=== PATIENT | female | born 1985 | race Caucasian/White ===

== ENCOUNTER 2017-01-07 01:03 | Inpatient (IN) | payer OTHER ==
[2017-01-07] VITALS (23 sets, daily range): BP systolic 115–160; BP diastolic 58–93; PULSE 44–77; TEMP 97.6–98.3
[~2017-01-07] VITALS: Ht 157.5 cm; Wt 65.5 kg
[2017-01-07] MEDS ORDERED: PRENATA1 CTB PO (01:44)
[2017-01-07] MEDS ORDERED: TYLENOL PM EXTR1 TA1 PO (01:46)
[2017-01-07 02:33] LABS: BASO # 0.1 (0.0-0.2); BASO % 0.4 % (0.0-2.0); EOS # 0.1 (0.0-0.7); EOS % 0.6 % (0-4.0); GRAN # 9.2 (1.4-6.5); GRAN % 67.4 % (42.2-75.2); HEMATOCRIT 31.8 % (37.0-47.0); HEMOGLOBIN 11.6 g/dl (12.5-16.0); LYMPH # 3.3 (1.2-3.4); LYMPH % 23.9 % (20.0-51.0); MEAN CELL VOLUME 88 fl (80.0-100.0); MEAN CORPUSCULAR HEMOGLOBIN 32 pg (27.0-31.0); MEAN CORPUSCULAR HGB CONC 37 g/dl (33.0-37.0); MEAN PLATELET VOLUME 11.1 fl (7.4-10.4); MONO # 0.9 (0.1-0.6); MONO % 6.7 % (1.7-9.3); PLATELET COUNT 148 K/mm3 (130-400); RED BLOOD COUNT 3.61 M/mm3 (4.10-5.30); REDCELL DISTRIBUTION WIDTH-CV 12.5 % (11.5-14.5); WHITE BLOOD COUNT 13.6 K/mm3 (4.8-10.8)
[2017-01-07 02:43] LABS: ADJUSTED CALCIUM 9.9 mg/dL (8.4-10.2); ALBUMIN 3.4 gm/dL (3.5-5.0); BILIRUBIN,TOTAL 0.4 mg/dL (0.0-1.0); CALCIUM 9.4 mg/dL (8.4-10.2); CREATININE, serum 0.93 mg/dL (0.52-1.25); TOTAL PROTEIN 6.2 gm/dL (6.4-8.2)
[2017-01-08 07:50] LABS: BASO % 0.2 % (0.0-2.0); GRAN # 19.6 (1.4-6.5); LYMPH # 3.7 (1.2-3.4); LYMPH % 14.7 % (20.0-51.0); MEAN CELL VOLUME 91 fl (80.0-100.0); MEAN CORPUSCULAR HGB CONC 35 g/dl (33.0-37.0); MEAN PLATELET VOLUME 11.1 fl (7.4-10.4); MONO # 1.5 (0.1-0.6); MONO % 5.9 % (1.7-9.3); PLATELET COUNT 138 K/mm3 (130-400); RED BLOOD COUNT 2.71 M/mm3 (4.10-5.30); REDCELL DISTRIBUTION WIDTH-CV 13.1 % (11.5-14.5)
[2017-01-08 07:58] LABS: HEMATOCRIT 24.6 % (37.0-47.0); HEMOGLOBIN 8.6 g/dl (12.5-16.0); MEAN CORPUSCULAR HEMOGLOBIN 32 pg (27.0-31.0); WHITE BLOOD COUNT 25.2 K/mm3 (4.8-10.8)
[2017-01-08] MEDS ORDERED: IBU800 M1 PO (08:56)
[2017-01-08] MEDS ORDERED: PERCOCET 325 MG1 TA2 PO (08:56)
[2017-01-08] MEDS ORDERED: FERROUS SU325 MG/TAB PO (08:57)
[2017-01-08 09:00] VITALS: BP 129/78; PULSE 55; TEMP 98.9
== END 2017-01-08 10:40 | disposition home or self-care (01) | DRG 775 ==
LOC: LDRO 01:03 → LDR 03:15 → OB 10:30
PROVIDERS: Obstetrics & Gynecology; Student in an Organized Health Care Education/Training Program
PROC: 10E0XZZ Delivery of Products of Conception, External Approach (ICD-10-PCS; principal; 2017-01-07)
PROC: 0KQM0ZZ Repair Perineum Muscle, Open Approach (ICD-10-PCS; 2017-01-07)
DX: O60.14X0 Preterm labor third trimester with preterm delivery third trimester, not applicable or unspecified (principal); D62 Acute posthemorrhagic anemia; O99.02 Anemia complicating childbirth; O70.1 Second degree perineal laceration during delivery; Z3A.35 35 weeks gestation of pregnancy; Z37.0 Single live birth
CPT/HCPCS: J0595; J0702; J2405; J2540; J2590; J3010; J7120

== ENCOUNTER → 2017-01-21 | Outpatient (CLI) | payer OTHER ==
[~2017-01-21] MED LIST: FERROUS SU325 MG/TAB PO; IBU800 M1 PO; PERCOCET 325 MG1 TA2 PO; PRENATA1 CTB PO; TYLENOL PM EXTR1 TA1 PO
== END ==
LOC: OLC 13:52
DX: Z39.1 Encounter for care and examination of lactating mother (principal); Z71.89 Other specified counseling

== ENCOUNTER 2018-05-17 12:17 | Emergency (ER) | payer OTHER ==
[~2018-05-17] VITALS: Ht 157.5 cm; Wt 52.7 kg
[2018-05-17 12:41] VITALS: TEMP 97.9
[2018-05-17 13:41] LABS: COLLECTION METHOD CLEAN CATCH
[2018-05-17 14:05] LABS: MUCOUS Present /lpf; PH 5 (5-8); URINE APPEARANCE Cloudy; URINE BACTERIA Rare /hpf; URINE BILIRUBIN Negative (NEGATIVE); URINE BLOOD Negative (NEGATIVE); URINE CALCIUM OXALATE CRYSTAL Present /hpf; URINE COLOR Yellow; URINE GLUCOSE Negative (NEGATIVE); URINE KETONE Trace (NEGATIVE); URINE LEUKOCYTE ESTERASE Negative (NEGATIVE); URINE NITRATE Negative (NEGATIVE); URINE PROTEIN(semi-quant) 1+ (NEGATIVE); URINE UROBILINOGEN Negative (NEGATIVE)
[2018-05-17 15:52] VITALS: BP 120/58; PULSE 66
== END 2018-05-17 15:54 | disposition home or self-care (01) ==
LOC: COL.ER 12:17
PROVIDERS: Emergency Medicine
DX: O9A.211 Injury, poisoning and certain other consequences of external causes complicating pregnancy, first trimester (principal); S70.02XA Contusion of left hip, initial encounter; S30.0XXA Contusion of lower back and pelvis, initial encounter; Z3A.11 11 weeks gestation of pregnancy; V80.010A Animal-rider injured by fall from or being thrown from horse in noncollision accident, initial encounter; Y93.52 Activity, horseback riding; Z79.1 Long term (current) use of non-steroidal anti-inflammatories (NSAID)

== ENCOUNTER 2018-11-15 02:33 | Inpatient (IN) | payer OTHER ==
[~2018-11-15] VITALS: Ht 157.5 cm; Wt 66.8 kg
[2018-11-15] VITALS (34 sets, daily range): BP systolic 103–130; BP diastolic 55–78; PULSE 51–74; TEMP 97.7–98.3
--- NOTE | 2018-11-15 03:31 | NUR ---
HERE WITH SPOUSE - MORNING INDUCTION HAVING CONTRACCTIONS GETTIN WORSE. .
--- NOTE | 2018-11-15 06:45 | NUR ---
report received from Caterina SERRANO. Pt resting in bed, denies any difference in contractions. Consents signed, IV started to left FA x 3 attempts. FHR reactive, contractions every 10-15 minutes. at bedside. Assessment complete. 0745:Pitocin started at 2mu per order. Plan of care reviewed, verbalize understanding.
[2018-11-15 08:17] LABS: BASO # 0.1 (0.0-0.2); BASO % 0.4 % (0.0-2.0); EOS # 0.2 (0.0-0.7); EOS % 1.6 % (0-4.0); GRAN # 7.5 (1.4-6.5); GRAN % 64.9 % (42.2-75.2); HEMATOCRIT 33.8 % (37.0-47.0); HEMOGLOBIN 11.8 g/dl (12.5-16.0); LYMPH % 25.7 % (20.0-51.0); MEAN CELL VOLUME 90 fl (80.0-100.0); MEAN CORPUSCULAR HEMOGLOBIN 32 pg (27.0-31.0); MEAN CORPUSCULAR HGB CONC 35 g/dl (33.0-37.0); MEAN PLATELET VOLUME 10.8 fl (7.4-10.4); MONO # 0.8 (0.1-0.6); MONO % 6.8 % (1.7-9.3); PLATELET COUNT 196 K/mm3 (130-400); RED BLOOD COUNT 3.74 M/mm3 (4.10-5.30); REDCELL DISTRIBUTION WIDTH-CV 12.7 % (11.5-14.5)
--- NOTE | 2018-11-15 09:25 | NUR ---
Dr Roberson here and updated. Physician at bedside, SVE: /-2. AROM, clear fluid noted. New pads placed.
--- NOTE | 2018-11-15 11:15 | NUR ---
Recurrent variable decelerations. SVE: /-2. Pt breathing through contractions, denies wanting any thing for pain at this time.
--- NOTE | 2018-11-15 11:50 | NUR ---
Pt requesting epidural, SVE: /-2. IVF bolus started and T.Mansoor [employer]OR INST[employer]ER. 1200:Pt sitting up vomiting. 200cc emesis. Pt repositioned to sitting up position. 1205:Shavon [employer]OLEUM FLOOR INSTALLER at bedside. Epidural placed, test dose given at 1218, pt tolerated well. See anesthesia notes.
--- NOTE | 2018-11-15 12:55 | NUR ---
Pt to right side, feeling contraction on pain on right lower abd. Dr Roberson here. SVE /0. Pt to repositioned to right lateral with peanut ball. FHR with recurrent variable decelerations, Dr Roberson reviews monitor strip.
--- NOTE | 2018-11-15 13:15 | NUR ---
Pt feeling pressure, SVE:AL/100/+2. 1317:Dr Roberson called to notify. Pt prepped for delivery. Straight catheter performed, 200ml urine. 1323:Dr Falcon here. SVE: complete +3. Pt pushes through one contraction and at 1327 of 's head and shoulders. Cord clamped and cut and in care of Doreen SERRANO. 2nd degree laceration repaired by physician. 1331:Spontaneous delivery of placenta. LR with pitocin infusing at 333ml/hr per protocol. Fundus firm, bleeding WNL. Pericare done and new pads and ice pack in place. Pt sitting up and skin to skin.
[2018-11-16 04:04] VITALS: BP 102/70; PULSE 76; TEMP 98.3
[2018-11-16 08:33] VITALS: BP 109/64; PULSE 68; TEMP 97.6
--- NOTE | 2018-11-16 09:10 | NUR ---
Initial visit; Parents thanked Dental Equipment Mechanic for offering congratulations and God's blessings for the of their daughter. Dental Equipment Mechanic thanked family for choosing [facility].
[2018-11-16 13:32] VITALS: BP 113/65; PULSE 79; TEMP 97.9
[2018-11-16 17:16] VITALS: BP 130/72; PULSE 58; TEMP 97.7
[2018-11-16 21:15] VITALS: BP 116/72; PULSE 71; TEMP 98.7
[2018-11-17 07:20] VITALS: BP 120/55; PULSE 68; TEMP 98.1
[2018-11-17] MEDS ORDERED: IBU800 M1 PO (09:30)
--- NOTE | 2018-11-17 10:40 | NUR ---
Patient given discharge instructions/verbalizes understanding and signs discharge papers. Infants bands removed. 1105: Infants car seat checked and ambulatory off this unit with this RN/
== END 2018-11-17 11:05 | disposition home or self-care (01) | DRG 807 ==
LOC: LDRO 02:33 → LDR 02:35 → LDRO 05:53 → LDR 05:54 → OB 05:54 → LDR 10:05 → OB 16:00
PROVIDERS: ADMIT Student in an Organized Health Care Education/Training Program
PROC: 10E0XZZ Delivery of Products of Conception, External Approach (ICD-10-PCS; principal; 2018-11-15)
PROC: 0KQM0ZZ Repair Perineum Muscle, Open Approach (ICD-10-PCS; 2018-11-15)
DX: O36.5930 Maternal care for other known or suspected poor fetal growth, third trimester, not applicable or unspecified (principal); Z37.0 Single live birth; Z3A.37 37 weeks gestation of pregnancy; O70.1 Second degree perineal laceration during delivery; O76 Abnormality in fetal heart rate and rhythm complicating labor and delivery
CPT/HCPCS: J2590; J7120